=== PATIENT | male | born 1955 | race Caucasian/White ===

== ENCOUNTER 2021-01-09 08:30 | Emergency (ER) | payer OTHER ==
[2021-01-09] MEDS ORDERED: MELOXICAM15 MG PO (09:46)
== END 2021-01-09 10:18 | disposition home or self-care (01) ==
LOC: FER 08:30
DX: S86.011A Strain of right Achilles tendon, initial encounter (principal); I10 Essential (primary) hypertension; X50.1XXA Overexertion from prolonged static or awkward postures, initial encounter; Y92.410 Unspecified street and highway as the place of occurrence of the external cause
CPT/HCPCS: 73610